=== PATIENT | male | born 1955 | race Caucasian/White ===

== ENCOUNTER → 2024-07-29 11:40 | Outpatient (REF) | payer BC, SELFPAY ==
[2024-07-29 12:14] LABS: Hematocrit 44.1 % (39.0-52.0); Mean Corpuscular Hgb 30.7 pg (27.0-31.0); Mean Corpuscular Volume 90.2 fL (80.0-94.0); Mean Platelet Volume 10.1 fL (7.4-10.4); Platelet Count 188 10^3/uL (130-400); Red Blood Cell Count 4.89 10^6/uL (4.70-6.10); Red Cell Dist. Width 12.7 % (11.5-14.5); White Blood Cell Count 5.4 10^3/uL (4.8-10.8)
[2024-07-29 12:19] LABS: INR 1.07; PT 13.7 Sec (11.4-14.6)
[2024-07-29 12:20] VITALS: BP 149/93; BP_SYST 56
[2024-07-29 13:33] VITALS: BP 155/94; BP_SYST 60
[2024-07-29 13:45] VITALS: BP 137/84; BP_SYST 54
[2024-07-29 14:00] VITALS: BP 137/80; BP_SYST 65
[2024-07-29 14:15] VITALS: BP 148/83; BP_SYST 56
[2024-07-29 14:18] LABS: Spinal Fluid Glucose 60 mg/dl (40-70); Spinal Fluid Protein 80 mg/dl (12-60)
[2024-07-29 14:30] VITALS: BP 148/83
[2024-07-29 14:39] LABS: CSF Color Colorless; CSF Tube # 1; CSF Tube # Clarity Clear; White Blood Cell Count/CSF 0 mm^3 (0-5)
[2024-07-29 14:40] LABS: CSF Clarity Clear; CSF Color Colorless; CSF Tube # 4; Red Cell Count/CSF 343 mm^3; Red Cell Count/CSF 9 mm^3; White Cell Count/CSF 1 mm^3 (0-5)
== END ==
LOC: RADI 11:40
PROVIDERS: ATTENDING PHYSICIAN Psychiatry & Neurology Neurology; FAMILY PHYSICIAN Family Medicine
DX: F68.8 Other specified disorders of adult personality and behavior (principal); Z01.812 Encounter for preprocedural laboratory examination; Z01.818 Encounter for other preprocedural examination
CPT/HCPCS: 36415; 62328; 82945; 84157; 85027; 85610; 89051

== ENCOUNTER 2024-12-02 13:11 | Emergency (ER) | payer BC, SELFPAY ==
[2024-12-02 13:25] VITALS: BP 181/96
--- NOTE | 2024-12-02 13:43 | ED.MUSCINJ ---
HPI-Injury
<Homa Johnson NP - Last Filed: 12/02/24 13:44>
General
Chief Complaint: Musculo-Skeletal Complaint
Time Seen by Provider: 12/02/24 17:35
<Michelle Carnes MD - Last Filed: 12/02/24 18:08>
General
Source: patient and family
History of Present Illness-Injury
Initial Injury comments:
This patient is a 69-year-old male who got an IVIG infusion in September. Yesterday he noted an area in the right arm where it was a little tender when he leaned on his arm in a certain way. He notes a very superficial questionable bruise in this
area and he was concerned that there could be a piece of retained needle/metal in the area. He denies numbness, tingling, weakness, redness, warmth, fever, chills, swelling, chest pain, shortness of breath, or other complaints.
ED Provider Triage
<Homa Johnson NP - Last Filed: 12/02/24 13:44>
-
Patient seen by provider in Triage?: Seen in Triage
Attestation: A medical screening examination has been initiated by a qualified medical provider. Based on the assessment performed at this time, it has been determined that an emergent medical condition may exist and the patient has been informed
that further medical evaluation and possible additional diagnostic testing may be needed.
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 He states he put a magnet on top of the area and the magnets but when he put the magnet down further on his arm
it did not stick so he is concerned that there is a foreign substance at the area.
GENERAL: Alert , in no apparent distress
EYE: No visual abnormalities.
NECK: Trachea midline
ENT: No visible abnormalities.
LUNGS: No acute respiratory distress
NEUROLOGICAL: Alert and oriented
SKIN: Skin intact. No visible changes.
MUSCULOSKELETAL: Moving extremities normally
PSYCH: Normal and appropriate interaction.
This is a medical evaluation conducted in person to initiate diagnostic evaluation and provide initial therapeutics. Please see further documentation by the treating clinician.
Past History
<Michelle Carnes MD - Last Filed: 12/02/24 18:08>
Past History
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
Social History
Tobacco: Non-smoker
Alcohol: None
Drug: None
Living: with family
Phy Exam
<Michelle Carnes MD - Last Filed: 12/02/24 18:08>
Physical Exam
Physical Exam:
GENERAL: Alert , in no apparent distress
NECK: Supple, no significant adenopathy.
ENT: o/p clr, mmm.
CARDIAC: Regular rate and rhythm .
LUNGS: Clear breath sounds bilaterally, no acute respiratory distress, no wheezes/rales/rhonchi
NEUROLOGICAL: Alert and oriented, no focal neuro deficits
SKIN: Warm and dry, skin intact.
MUSCULOSKELETAL: No edema, well perfused. There is a very small area at right volar aspect forearm with ?superficial thrombophlebitis, no redness/warmth/streaking. FROM, nl pulses, no swelling, cap refill wnl.
PSYCH: Normal and appropriate interaction.
Injury Course
<Homa Johnson NP - Last Filed: 12/02/24 13:44>
Orders/Labs/Results
Orders:
Orders
12/02/24 13:42
US Periph Venous UPPER Ext RT Urgent
Comment:
Reason For Exam: lump at IV site
<Michelle Carnes MD - Last Filed: 12/02/24 18:08>
Orders/Labs/Results
Orders:
Orders
12/02/24 13:42
US Periph Venous UPPER Ext RT Urgent
Comment:
Reason For Exam: lump at IV site
<Michelle Carnes MD - Last Filed: 12/02/24 18:08>
Update Note
Update Note:
Patient presents to the Emergency Department with ____right arm discomfort
Number and Complexity of Problems Addressed at the Encounter
� Chronic conditions affecting care:
� Acute Exacerbation and/or Progression of Chronic Illness:
� Differential Diagnosis includes: But not limited to DVT, superficial thrombophlebitis, abscess, retained foreign body, cellulitis
Amount and/or Complexity of Data to be Reviewed and Analyzed
� I performed an independent evaluation of and my interpretation is:
EKG:
CT:
Xrays:
Laboratory Studies:
Other: Ultrasound right upper extremity negative DVT
� Review of other/old records reveals:
� Clinical information was obtained by an independent historian: Daughter who is bedside
� Prescriptions/Medications Considered but not given:
� Further testing considered but not performed:
Risk of Complications and/or Morbidity or Mortality of Patient Management
� Social determinants of health affecting care:
� Discussion with other providers (PCP, Hospitalists, Consultants, etc):
� Escalation of care including admission/observation vs risk of discharge considered: Do not clinically suspect foreign body retained no signs of infection or bony injury, no DVT. Patient advised warm compresses NSAIDs and close
follow-up
ED Attending Note
<Homa Johnson NP - Last Filed: 12/02/24 13:44>
-
Portions of this chart may have been created with voice recognition software.� Occasional wrong word or��sound alike� substitutions may have occurred due to the inherent limitations of voice recognition software.
Discharge Plan
Departure
Patient Disposition: Home (Routine Discharge)
Date of Disposition: 12/02/24
Time of Disposition: 17:56
Patient with high blood pressure during this ER visit?: Yes
Discharge Problem:
Arm pain
Instructions: BLOOD PRESSURE
Prescriptions:
No Action
cyanocobalamin (vitamin B-12) [Vitamin B-12] 1,000 mcg Tablet
1,000 mcg PO DAILY
coenzyme Q10 100 mg Capsule
100 mg PO DAILY
rosuvastatin 10 mg Tablet
10 mg PO DAILY
timolol maleate 0.5 % Drops, Once Daily
1 drp OPHTHALMIC (EYE) DAILY
Lumigan 0.01 % Drops
1 drp OPHTHALMIC (EYE) QPM
Activity Restrictions/Additional Instructions:
PLEASE APPLY WARM COMPRESSES 20 MINUTES AT A TIME 4 TIMES A DAY AND TAKE ANTI-INFLAMMATORY MEDICATIONS SUCH IBUPROFEN DIRECTED. IF YOU DEVELOP NEW OR WORSENING PAIN, ANY REDNESS, STREAKING, DRAINAGE, FEVER, WEAKNESS, NUMBNESS, SWELLING, OR
OTHER WORRISOME SIGNS, PLEASE RETURN TO THE ER IMMEDIATELY.
Discharge Date and Time
Print Language: FAROESE
== END 2024-12-02 18:05 | disposition home or self-care (01) ==
LOC: EMR 13:11
PROVIDERS: EMERGENCY PHYSICIAN Emergency Medicine; FAMILY PHYSICIAN Family Medicine
DX: M79.601 Pain in right arm (principal); G61.81 Chronic inflammatory demyelinating polyneuritis
CPT/HCPCS: 99284; 93971